=== PATIENT | male | born 1990 | race Caucasian/White ===

== ENCOUNTER 2021-07-09 17:36 | Emergency (ER) | payer BC ==
[~2021-07-09] VITALS: Ht 188 cm; Wt 81.6 kg
[2021-07-09 17:36] VITALS: BP_SYST 128
--- NOTE | 2021-07-09 17:36 | NUR ---
BROUGHT BACK TO BED #4 AND TRIAGED. REPORT GIVEN TO GARCÍA
--- NOTE | 2021-07-09 17:40 | NUR ---
PT CAME IN FROM HOME C/O FEELING SOB. STATES HE HAS A HX OF ASTHMA AND HAS BEEN USING AN ALBUTEROL INHALER BUT STILL FEELING SOB. PT HAS COUGH. AMBULATORY, AAOX4, V/S STABLE
[2021-07-09] MEDS ORDERED: ALBUTEROL SULFATE 0.083% 2.5 MG/3 ML VIAL.NEB INH ONE (17:57)
[2021-07-09] MEDS ORDERED: IPRATROPIUM BROM 0.5 MG/2.5 ML VIAL.NEB (ATROVENT) INH ONE (17:57)
--- NOTE | 2021-07-09 18:00 | NUR ---
RT AT THE BEDSIDE FOR BREATHING TX
[2021-07-09] MEDS: ALBUTEROL SULFATE 0.083% 2.5 MG/3 ML VIAL.NEB INH ONE (18:09)
[2021-07-09] MEDS: IPRATROPIUM BROM 0.5 MG/2.5 ML VIAL.NEB (ATROVENT) INH ONE (18:09)
--- NOTE | 2021-07-09 18:15 | NUR ---
PORTABLE X-RAY AT THE BEDSIDE
[2021-07-09] MEDS: predniSONE 20 MG TABLET PO ONE (18:23)
--- NOTE | 2021-07-09 19:16 | NUR ---
REPORT GIVEN TO DINAH LOVELACE FOR CONTINUING CARE
[2021-07-09] MEDS ORDERED: FLUT12AE5 IH (19:41)
[2021-07-09] MEDS ORDERED: PRED20TA PO (19:41)
[2021-07-09] MEDS ORDERED: ALBU8.5H8 INH (19:41)
[2021-07-09 20:03] VITALS: BP_SYST 128
--- NOTE | 2021-07-09 20:03 | NUR ---
Patient given written and verbal discharge instructions and verbalizes understanding. ER MD discussed with patient the results and treatment provided. Patient in stable condition. ID arm band removed. Rx of ProAir, Advair, and Prednisone given. Patient educated on pain management and to follow up with PMD. Pain Scale 0/10 Opportunity for questions provided and answered. Medication side effect fact sheet provided.
== END 2021-07-09 20:03 | disposition home or self-care (01) ==
LOC: SED 17:36
DX: J45.909 Unspecified asthma, uncomplicated (principal); R06.02 Shortness of breath
CPT/HCPCS: 71045; 94640; 99283; J7512; J7613